=== PATIENT | female | born 1970 | race African-American/Black ===

== ENCOUNTER 2017-06-03 10:25 | Emergency (ER) | payer OTHER ==
[~2017-06-03] VITALS: Ht 167.6 cm; Wt 95.0 kg
[2017-06-03 10:34] VITALS: BP 161/98; PULSE 67; RESP 16; TEMP 98.1; O2SAT 99
[2017-06-03 10:55] VITALS: BP_SYST 142; BP_SYST 146; BP_SYST 156; BP_DIAS 104; BP_DIAS 105; BP_DIAS 95; RESP 16
[2017-06-03] MEDS ORDERED: SODIUM CHLOR 0.9% 1000 ML INJ 1,000 ML IV ONE (10:55)
[2017-06-03 10:57] VITALS: O2SAT 98
--- NOTE | 2017-06-03 10:57 | PD ---
HPI Chief Complaint: Dizziness Time Seen by Provider: 10:54 Travel History International Travel<30 days: No Contact w/Intl Traveler<30days: No Traveled to known affect area: No History of Present Illness HPI 47-year-old female patient with history of hypertension, presents to the ER today because of several days history of nausea, vomiting, and dizziness. She states it worsens with head movements. She states that she feels unsteady when she walks. She denies any fevers, abdominal pains, diarrhea, coughing, shortness of breath, chest pains, or any other symptoms. She denies any previous history of symptoms. Modifying Factors: Worse with movements Associated Signs & Symptoms: Dizziness, nausea and vomiting Risk Factors: None PFSH Past Medical History Hx Anticoagulant Therapy: No Cardiovascular Problems: Yes (HTN) Diabetes: No Hypertension: Yes Tetanus Vaccination: > 5 Years Influenza Vaccination: No ?: Not Past Surgical History Hysterectomy: Yes Social History Alcohol Use: No Tobacco Use: No Substance Use: No Allergies-Medications (Allergen,Severity, Reaction): Coded Allergies: No Known Allergies (Verified Allergy, Unknown, 06/03/17) Reported Meds & Prescriptions Reported Meds & Active Scripts Active Reported Triamterene 1 Pow Pow Review of Systems Except as stated in HPI: all other systems reviewed are Neg Physical Exam Narrative GENERAL: Well-developed middle age after [place] female patient currently not acute distress. Awake and oriented 3. SKIN: Focused skin assessment warm/dry. HEAD: Atraumatic. Normocephalic. EYES: Pupils equal and round. No scleral icterus. No injection or drainage. ENT: No nasal bleeding or discharge. Mucous membranes pink and moist. NECK: Trachea midline. No JVD. CARDIOVASCULAR: Regular rate and rhythm. No murmur appreciated. RESPIRATORY: No accessory muscle use. Clear to auscultation. Breath sounds equal bilaterally. GASTROINTESTINAL: Abdomen soft, non-tender, nondistended. Hepatic and splenic margins not palpable. MUSCULOSKELETAL: No obvious deformities. No clubbing. No cyanosis. No edema. NEUROLOGICAL: Awake and alert. No obvious cranial nerve deficits. Motor grossly within normal limits. Normal speech. No pronator drift. Normal Romberg testing. PSYCHIATRIC: Appropriate mood and affect; insight and judgment normal. Data Data Last Documented VS Vital Signs Date Time Temp Pulse Resp B/P (MAP) Pulse Ox O2 Delivery O2 Flow Rate FiO2 06/03/17 10:57 98 Room Air 06/03/17 10:55 79 16 74 16 88 16 06/03/17 10:34 98.1 Orders Orders Electrocardiogram (06/03/17 10:55) Ed Urine Pregnancytest Poc (06/03/17 10:55) Complete Blood Count With Diff (06/03/17 10:55) Comprehensive Metabolic Panel (06/03/17 10:55) Magnesium (Mg) (06/03/17 10:55) Ckmb (Isoenzyme) Profile (06/03/17 10:55) Troponin I (06/03/17 10:55) Act Partial Throm Time (Ptt) (06/03/17 10:55) Prothrombin Time / Inr (Pt) (06/03/17 10:55) Urinalysis - C+S If Indicated (06/03/17 10:55) Chest, Single Ap (06/03/17 10:55) Ct Brain W/O Iv Contrast(Rout) (06/03/17 10:55) Ecg Monitoring (06/03/17 10:55) Iv Access Insert/Monitor (06/03/17 10:55) Oximetry (06/03/17 10:55) Meclizine (Antivert) (06/03/17 11:00) Ondansetron Inj (Zofran Inj) (06/03/17 11:00) Sodium Chloride 0.9% Flush (Ns Flush) (06/03/17 11:00) Sodium Chlor 0.9% 1000 Ml Inj (Ns 1000 M (06/03/17 10:55) CKMB (06/03/17 11:00) CKMB% (06/03/17 11:00) Labs Laboratory Tests Test 06/03/17 11:00 06/03/17 12:15 White Blood Count 5.4 TH/MM3 Red Blood Count 5.51 MIL/MM3 Hemoglobin 13.3 GM/DL Hematocrit 42.0 % Mean Corpuscular Volume 76.2 FL Mean Corpuscular Hemoglobin 24.1 PG Mean Corpuscular Hemoglobin Concent 31.6 % Red Cell Distribution Width 15.5 % Platelet Count 255 TH/MM3 Mean Platelet Volume 7.6 FL Neutrophils (%) (Auto) 65.5 % Lymphocytes (%) (Auto) 29.3 % Monocytes (%) (Auto) 3.7 % Eosinophils (%) (Auto) 1.1 % Basophils (%) (Auto) 0.4 % Neutrophils # (Auto) 3.5 TH/MM3 Lymphocytes # (Auto) 1.6 TH/MM3 Monocytes # (Auto) 0.2 TH/MM3 Eosinophils # (Auto) 0.1 TH/MM3 Basophils # (Auto) 0.0 TH/MM3 CBC Comment AUTO DIFF Differential Comment AUTO DIFF CONFIRMED Target Cells 1+ Prothrombin Time 10.7 SEC Prothromb Time International Ratio 1.0 RATIO Activated Partial Thromboplast Time 26.7 SEC Blood Urea Nitrogen 12 MG/DL Creatinine 0.92 MG/DL Random Glucose 111 MG/DL Total Protein 8.0 GM/DL Albumin 4.3 GM/DL Calcium Level 9.3 MG/DL Magnesium Level 2.0 MG/DL Alkaline Phosphatase 77 U/L Aspartate Amino Transf (AST/SGOT) 16 U/L Alanine Aminotransferase (ALT/SGPT) 26 U/L Total Bilirubin 0.7 MG/DL Sodium Level 141 MEQ/L Potassium Level 3.4 MEQ/L Chloride Level 104 MEQ/L Carbon Dioxide Level 29.3 MEQ/L Anion Gap 8 MEQ/L Estimat Glomerular Filtration Rate 79 ML/MIN Total Creatine Kinase 215 U/L Creatine Kinase MB 0.9 NG/ML Creatine Kinase MB % 0.4 % Troponin I LESS THAN 0.02 NG/ML Urine Collection Type CLEAN CATCH Urine Color YELLOW Urine Turbidity SLIGHT Urine pH 6.0 Urine Specific Portal 1.021 Urine Protein NEG mg/dL Urine Glucose (UA) NEG mg/dL Urine Ketones NEG mg/dL Urine Occult Blood NEG Urine Nitrite NEG Urine Bilirubin NEG Urine Leukocyte Esterase NEG Urine WBC 0-2 /hpf Urine Squamous Epithelial Cells 0-5 /hpf Urine Amorphous Sediment MOD Microscopic Urinalysis Comment CULT NOT INDICATED Urine Collection Time 12:15 [facility] Medical Decision Making Medical Screen Exam Complete: Yes Emergency Medical Condition: Yes Medical Record Reviewed: Yes Interpretation(s) EKG shows NSR, no ST elevation or depression, and no arrhythmias. No significant T-wave inversions. Laboratory Tests Test 06/03/17 11:00 06/03/17 12:15 Red Blood Count 5.51 MIL/MM3 (4.00-5.30) Mean Corpuscular Volume 76.2 FL (80.0-100.0) Mean Corpuscular Hemoglobin 24.1 PG (27.0-34.0) Mean Corpuscular Hemoglobin Concent 31.6 % (32.0-36.0) Target Cells 1+ (NORMAL) Random Glucose 111 MG/DL (74-106) Potassium Level 3.4 MEQ/L (3.5-5.1) Estimat Glomerular Filtration Rate 79 ML/MIN (>89) Total Creatine Kinase 215 U/L (26-192) Troponin I LESS THAN 0.02 NG/ML Last [address] 06/03/17 1055 Signed Impressions: Service Date/Time: May 12:23 - CONCLUSION: Normal examination. Gustavo Nicholas MD Chest X-Ray 06/03/17 1055 Signed Impressions: Service Date/Time: May 11:36 - CONCLUSION: No acute disease. Eric Perez Jr., MD Differential Diagnosis Dizziness, nausea and vomiting: Orthostasis versus dehydration versus metabolic issues versus dysrhythmias versus sepsis versus vertigo versus acute intracranial processes versus CVA Narrative Course Patient has no focal neurological deficits. Symptoms are consistent with vertigo. She was given IV fluids, nausea medications, and meclizine in the ER. On reevaluation at 12:45 PM, she is feeling improved. She states that her nausea and vomiting symptoms have gone away but she is still having some dizziness. She is deathly able to move around the ER. Her vital signs are stable in the ER. Lab work did not indicate significant metabolic issues or signs of dehydration. CT of the brain did not show any signs of acute cranial processes. At this point, my plan would be to release her with follow-up to primary care physician. We will give her further symptomatic relief for vertigo. Return for worsening in symptoms as necessary. The plan has been discussed with the patient and she states understanding. Diagnosis Primary Impression: Vertigo Med/Other Pt SpecificInfo: Prescription(s) given Scripts Meclizine (Meclizine) 25 Mg Tab 25 MG PO DIRECTED Y for VERTIGO, #15 TAB 0 Refills Prov: Nigel Tafoya MD 06/03/17 Ondansetron Odt (Zofran Odt) 4 Mg Tab 4 MG SL Q6HR Y for Nausea/Vomiting, #7 TAB 0 Refills Prov: Nigel Tafoya MD 06/03/17 Disposition: 01 DISCHARGE HOME Condition: Stable Niegl Tafoya MD Jun 03, 2017 10:57
[2017-06-03] MEDS ORDERED: TRIAPOW43 (10:58)
[2017-06-03] MEDS ORDERED: ONDANSETRON HCL 4 MG/2 ML VIAL IVP ONE (11:00)
[2017-06-03] MEDS ORDERED: MECLIZINE HCL 25 MG TAB PO ONE (11:00)
[2017-06-03] MEDS ORDERED: SODIUM CHLORIDE 0.9% FLUSH 10 ML FLUSH IVF PRN (11:00)
[2017-06-03 11:12] LABS: AUTOMATED NEUTROPHIL # 3.5 TH/MM3 (1.8-7.7); BASOPHIL % 0.4 % (0.0-2.0); EOSINOPHIL # 0.1 TH/MM3 (0-0.4); EOSINOPHIL % 1.1 % (0.0-4.0); LYMPH % 29.3 % (9.0-44.0); LYMPHOCYTE # 1.6 TH/MM3 (1.0-4.8); MEAN CELL VOLUME 76.2 FL (80.0-100.0); MEAN CORPUSCULAR HEMOGLOBIN 24.1 PG (27.0-34.0); MEAN CORPUSCULAR HGB CONC 31.6 % (32.0-36.0); MONO % 3.7 % (0.0-8.0); NEUT % 65.5 % (16.0-70.0); PLATELET COUNT 255 TH/MM3 (150-450); RED BLOOD COUNT 5.51 MIL/MM3 (4.00-5.30); RED CELL DISTRIBUTION WIDTH 15.5 % (11.6-17.2); WHITE BLOOD COUNT 5.4 TH/MM3 (4.0-11.0)
[2017-06-03 11:14] LABS: HEMO FLAGS AUTO DIFF
[2017-06-03 11:27] LABS: CHLORIDE 104 MEQ/L (98-107); POTASSIUM 3.4 MEQ/L (3.5-5.1); SODIUM (NA) 141 MEQ/L (136-145)
[2017-06-03 11:31] LABS: ANION GAP 8 MEQ/L (5-15); BICARBONATE 29.3 MEQ/L (21.0-32.0); BLOOD UREA NITROGEN 12 MG/DL (7-18)
[2017-06-03 11:32] LABS: SCAN/DIFF AUTO DIFF CONFIRMED; TARGET CELLS 1+ (NORMAL)
[2017-06-03 11:34] LABS: ALT (GPT) 26 U/L (10-53); AST (GOT) 16 U/L (15-37); GLOMERULAR FILTRATION RATE 79 ML/MIN (>89)
[2017-06-03 11:36] LABS: APTT (PATIENT) 26.7 SEC (24.3-30.1); PROTHROMBIN TIME - PATIENT 10.7 SEC (9.8-11.6); TOTAL BILIRUBIN ADULT 0.7 MG/DL (0.2-1.0)
[2017-06-03 11:37] LABS: ALKALINE PHOSPHATASE 77 U/L (45-117); CREATINE KINASE 215 U/L (26-192)
[2017-06-03 11:49] LABS: CKMB 0.9 NG/ML (0.5-3.6)
[2017-06-03 12:21] LABS: BLOOD, URINE NEG (NEG); GLUCOSE,URINE NEG (NEG); KETONE, URINE NEG (NEG); NITRITE,URINE NEG (NEG)
[2017-06-03 12:26] LABS: METHOD OF COLLECTION CLEAN CATCH; URINE COLOR YELLOW (YELLW/STRAW); WBC, URINE 0-2 /hpf (0-5)
[2017-06-03 12:27] LABS: COMMENT (UR) CULT NOT INDICATED; CULTURE IF INDICATED CULT NOT INDICATED; SQUAMOUS EPITHELIAL CELL URINE 0-5 /hpf (0-5)
--- NOTE | 2017-06-03 12:36 | RADRPT ---
EXAM DATE/TIME: 06/03/2017 12:23 [facility] COMPARISON: No previous studies available for comparison. INDICATIONS : Dizziness. RADIATION DOSE: 58.95 CTDIvol (mGy) MEDICAL HISTORY : Hypertension. SURGICAL HISTORY : Hysterectomy. ENCOUNTER: Initial ACUITY: 2 days PAIN SCALE: 0/10 LOCATION: cranial TECHNIQUE: Multiple contiguous axial images were obtained of the head. Using automated exposure control and adj ustment of the mA and/or kV according to patient size, radiation dose was kept as low as reasonably a chievable to obtain optimal diagnostic quality images. DICOM format image data is available electro nically for review and comparison. FINDINGS: CEREBRUM: The ventricles are normal for age. No evidence of midline shift, mass lesion, hemorrhage or acute in farction. No extra-axial fluid collections are seen. POSTERIOR FOSSA: The cerebellum and brainstem are intact. The 4th ventricle is midline. The cerebellopontine angle i s unremarkable. EXTRACRANIAL: The visualized portion of the orbits is intact. SKULL: The calvaria is intact. No evidence of skull fracture. CONCLUSION: Normal examination. Gustavo Nicholas MD on June 03, 2017 at 12:34 Board Certified Radiologist. This report was verified electronically.
--- NOTE | 2017-06-03 12:37 | RADRPT ---
EXAM DATE/TIME: 06/03/2017 11:36 [facility] COMPARISON: No previous studies available for comparison. INDICATIONS : Patient has palpitations with dizziness. MEDICAL HISTORY : None. SURGICAL HISTORY : None. ENCOUNTER: Initial ACUITY: 1 day PAIN SCORE: 3/10 LOCATION: Bilateral upper chest FINDINGS: A single view of the chest demonstrates the lungs to be symmetrically aerated without evidence of mas s, infiltrate or effusion. Elevation of the right hemidiaphragm. The cardiomediastinal contours are u nremarkable. Osseous structures are intact. CONCLUSION: No acute disease. Eric Perez Jr., MD on June 03, 2017 at 12:35 Board Certified Radiologist. This report was verified electronically.
[2017-06-03] MEDS ORDERED: MECL-62 PO (12:51)
[2017-06-03] MEDS ORDERED: ZOFR4TAB3 SL (12:51)
[2017-06-03 13:02] VITALS: BP 140/95; PULSE 66; RESP 16; O2SAT 95
--- NOTE | 2017-06-03 13:13 | EKG ---
Date Performed: 06/03/2017 Time Performed: 11:01:13 PTAGE: 47 years EKG: Sinus rhythm NORMAL ECG NO PREVIOUS TRACING DOCTOR: Juan Aguilar Interpretating Date/Time 06/03/2017 13:11:20
== END 2017-06-03 13:13 | disposition home or self-care (01) ==
LOC: PHED 10:25
DX: R42 Dizziness and giddiness (principal); R26.81 Unsteadiness on feet; I10 Essential (primary) hypertension; Z86.79 Personal history of other diseases of the circulatory system; Z79.899 Other long term (current) drug therapy
CPT/HCPCS: 70450; 71010; 80053; 81001; 82550; 82552; 83735; 84484; 84703; 85025; 85610; 85730; 93005; 96361; 96374; 99285; J2405; J7030